=== PATIENT | female | born 1985 | race Caucasian/White ===

== ENCOUNTER 2021-09-14 13:32 | Emergency (ER) | payer OTHER, SELFPAY ==
--- NOTE | 2021-09-14 13:51 | ED_ITS ---
HPI - General Adult General Chief complaint: Psychiatric Symptoms Stated complaint: crisis Time Seen by Provider: 09/14/21 13:51 Source: patient and EMS Mode of arrival: EMS Limitations: no limitations History of Present Illness HPI narrative: Patient is a 36 year old female presenting to the emergency department today for a mental health check. Patient states that her father wanted her to be evaluated however, she does not want to be. Patient denies any homicidal or suicidal ideation. Patient states that she would like to leave and would no longer like to be evaluated. Patient denies any dizziness, lightheadedness, abdominal pain, nausea, vomiting, fever, chills, blurry vision, double vision, loss of vision, chest pain, difficulty breathing, shortness of breath, back pain, night sweats, pain with urination, increased urinary frequency, increased urinary urgency, blood in her urine or stool, syncope or a near syncopal episode, recent trauma or falls, bowel incontinence, bladder incontinence, bowel retention, bladder retention, or any other complaints at this time. Relieving factors: none Exacerbating factors: none Associated symptoms: denies other symptoms Treatments prior to arrival: none Related Data Allergies Allergy/AdvReac Type Severity Reaction Status Date / Time No Known Allergies Allergy Unverified 11/04/19 17:16 Review of Systems Constitutional: Constitutional: Reports no additional constitutional complaints, Denies chills, Denies fever(s) and Denies night sweats Eyes: Eyes: Reports no additional eye complaints, Denies blurry vision, Denies change in vision, Denies diplopia, Denies eye discharge, Denies loss of vision and Denies eye pain ENT: Denies dizziness Cardiovascular: Cardiovascular: Reports no additional cardiovascular complaints, Denies chest pain, Denies lightheadedness, Denies Loss of Consciousness and Denies dyspnea Respiratory: Respiratory: Reports no additional respiratory complaints and Denies dyspnea Gastrointestinal: Gastrointestinal: Reports no additional gastrointestinal complaints, Denies abdominal pain, Denies melena, Denies hematochezia, Denies change in bowel habits and Denies change in stool character Genitourinary: Genitourinary: Denies hematuria, Denies urinary frequency, Denies dysuria, Denies urinary incontinence, Denies urinary hesitancy and Denies urinary urgency Musculoskeletal: Musculoskeletal: Reports no additional musculoskeletal complaints, Denies numbness and Denies tingling Neurologic: Denies dizziness, Denies loss of vision, Denies numbness and Denies tingling Psychiatric: Psychiatric: Reports no additional psychiatric complaints Endocrine: Endocrine: Reports no additional endocrine complaints Hematologic/Lymphatic: Hematologic/Lymphatic: Reports no additional hematologic/lymphatic complaints Allergic/Immunologic: Allergic/Immunologic: Reports no additional allergic/immunologic complaints PMFSH Past Medical History Attestation statement: The following information was validated with the patient. Source: old records reviewed Social History Social History Advance Directives: No Advance Directives Information Provided: No Physical Exam ED Vital Signs: BMI result Body Mass Index 24.3 Const General: cooperative, no acute distress, alert and awake Nutritional Appearance: well nourished Orientation/consciousness: patient oriented x3 Limitations: no limitations HENMT Head: Yes normal to inspection and Yes atraumatic Ears: hearing grossly normal bilaterally and external ears normal General nose exam: Normal external nose present, no nasal discharge noted and no epistaxis Face and sinus: Yes normal facial exam, No abrasion and No laceration Mouth: Normal oral and palatal mucosa present, no drooling and no muffled voice Eyes General: appearance normal, both eyes and all related structures Periorbital: periorbital findings normal Eyelids: Yes eyelids normal Conjunctivae: conjunctivae normal Pupils: Equal, round and reactive pupils present EOM: EOMs intact bilaterally Neck Neck: Yes normal visual inspection, Yes full ROM and Yes no lymphadenopathy Chest Chest palpation & inspection: normal inspection of the chest Resp Effort & Inspection: normal respiratory effort and able to speak in complete sentences Auscultation: clear to auscultation bilaterally Cardio Rate: regular rate Rhythm: regular rhythm GI Inspection: Yes normal to inspection Neuro General: patient oriented x3 and moves all extremities Cranial nerves: Yes Equal, round and reactive pupils present Cognition (Neuro): normal cognition Motor exam (neuro): 5/5 motor strength present throughout Sensory Exam: Normal double simultaneous stimulation for sensation Coordination: [id number] test normal Extrem General: Yes normal to inspection, Yes full ROM and Yes capillary refill normal Psych Appearance: grossly normal Mental Status: mental status grossly normal Affect: normal affect Attitude: cooperative Thought process: Normal thought process present Thought content: Normal thought content present Insight: Good insight present (Psych) Medical Decision Making MDM Narrative Medical decision making narrative: Patient is a 36 year old female presenting to the emergency department today for a mental health evaluation. Patient's physical exam was unremarkable. Patient was alert, orientated, and able to make decisions for herself. Patient was adamant she had no thoughts or plans of harming herself or others. Patient was not on a section 12. Patient's father did not come to the Emergency Department or call the department. I explained my physical exam findings to the patient. I answered all questions asked by the patient. Patient was advised that she should still be evaluated however, she said she did not want to stay. I stressed the importance of the patient taking her medication as prescribed. I stressed the importance of the patient following up with her primary care provider and her psychiatrist. I stressed the importance of the patient returning to the emergency department immediately if her symptoms were to worsen or if she were to develop any dizziness, shortness of breath, difficulty breathing, chest pain, blurry vision, loss of vision, nausea, vomiting, abdominal pain, fever, chills, back pain, or any other complaints. Patient left against medical advice. Differential Diagnosis Differential Diagnosis: crisis Medical Records Medical records reviewed: Yes I reviewed the patient's medical records. Discharge Plan Discharge Clinical Impression: Emotional crisis Patient Disposition: Left Against Medical Advice Interventions: ED Discharge Assessment Last Done: 09/14/21 13:57 Print Language: Ecuadorean
[2021-09-14 13:53] VITALS: BP 118/94; PULSE 80; O2SAT 96; BMI 24.3
--- NOTE | 2021-09-14 13:56 | PC.NURSE ---
Before this RN could complete assessment provider discharged patient.
== END 2021-09-14 14:23 | disposition left against medical advice (07) ==
LOC: HO.ED 14:02
PROVIDERS: Emergency Provider Student in an Organized Health Care Education/Training Program; PCP Internal Medicine
DX: F43.20 Adjustment disorder, unspecified (principal)
CPT/HCPCS: 99282

== ENCOUNTER 2022-01-05 05:34 | Emergency (ER) | payer OTHER, SELFPAY ==
[2022-01-05 05:45] VITALS: BP 129/80; BP 132/114; PULSE 74; PULSE 88; RESP 22; TEMP 36.1; O2SAT 100; O2SAT 98; BMI 30.3
--- NOTE | 2022-01-05 06:05 | ECG_ITS ---
Test Reason : OVERDOSE Blood Pressure : / mmHG Vent. Rate : 069 BPM Atrial Rate : 069 BPM P-R Int : 130 ms QRS Dur : 084 ms QT Int : 420 ms P-R-T Axes : 041 058 020 degrees QTc Int : 450 ms Normal sinus rhythm Normal ECG When compared with ECG of 06-SEP-2019 15:29, No significant change was found Referred By: Generic ED Physician Electronically Signed By:DAVIDE MENDOZA MD
[2022-01-05 06:38] LABS: MANUAL DIFF FLAG NO
[2022-01-05 06:48] LABS: Basophils Percent Auto 0.1 % (0-2); Eosinophils Absolute Auto 0.1 X10*3/uL (0.0-0.4); Eosinophils Percent Auto 0.8 % (0-4); Hematocrit 40.2 % (37.0-47.0); Hemoglobin 13.3 g/dl (12.0-16.0); Imm Gran Abs Auto 0.03 X10*3/uL (0.00-0.03); Imm Gran Pct Auto 0.3 % (0.0-0.4); Lymphocytes Percent Auto 10.6 % (20-40); Mean Corpuscular HGB Conc 33.1 g/dl (31.0-35.0); Mean Corpuscular Hemoglobin 29.8 pg (27.0-33.0); Mean Corpuscular Volume 90.1 fL (80.0-98.0); Monocytes Absolute Auto 0.5 X10*3/uL (0.1-1.2); Monocytes Percent Auto 5.9 % (2-11); Neutrophils Absolute Auto 7.5 x10*3/uL (2.0-8.3); Neutrophils Percent Auto 82.3 % (45-73); Platelet Count 297 X10*3/uL (160-400); Red Blood Count 4.46 X10*6/uL (4.20-5.50); Red Cell Distribution Width 12.7 % (11.0-16.0); White Blood Count 9.1 X10*3/uL (4.8-10.8)
[2022-01-05 06:56] LABS: Alanine Aminotransferase 19 U/L (0-31); Albumin Level 4.5 g/dL (3.5-5.0); Alkaline Phosphatase 64 U/L (39-117); Anion Gap 11 (12-20); Aspartate Amino Transferase 20 U/L (5-31); Bilirubin Total 0.6 mg/dL (0.0-1.0); Blood Urea Nitrogen 19 mg/dL (9-16); Calcium 9.6 mg/dL (8.4-10.2); Carbon Dioxide 32 mmol/L (22-29); Chloride 103 mmol/L (96-108); Creatinine Clr Calc Pharmacy 97.6; Estimated Glomerular Filt Rate > 60; Glucose Random 117 mg/dL (60-115); Potassium 3.9 mmol/L (3.3-5.1); Sodium 142 mmol/L (135-145); Total Protein 7.5 g/dL (6.5-8.0)
--- NOTE | 2022-01-05 06:59 | ED_ITS ---
HPI - Overdose General Chief Complaint: Overdose Stated Complaint: ?OD NARCAN GIVEN Time Seen by Provider: 01/05/22 06:21 Source: patient and other (Significant other) Mode of arrival: EMS Limitations: no limitations History of Present Illness HPI Narrative: 36-year-old female who was brought to the emergency department by ambulance for an unintentional overdose. The patient states that she does smoke crack cocaine daily. She states that she very rarely uses opiates. She states that she did purchase a bag of fentanyl and use did intranasally. The next thing she remembers is waking up with police surrounding her and telling her that they had to give her 3 doses of intranasal Narcan to revive her. The patient's boyfriend states that they were walking to his store. The patient complained of feeling very dizzy and they sat down. The patient then passed out and her lips turned purple. He states that he was unable to revive her. He is not certain to call 911 but the police arrived and gave the patient 3 doses of intranasal Narcan 4 mg each. The patient woke up and was then transported to the emergency department. The patient states that she has a headache and has nausea but has no other compl aints. She states the headache is located diffusely throughout her head, it is a constant pounding sensation which is 8/10 at its worst. She had nausea with no vomiting. She denied chest pain, shortness of breath, abdominal pain. She states that she was in her usual state of health until the overdose. complaint: intentional overdose Onset (ago): minute(s) (30) Timing confirmed by: other (Significant other) Intent: other (Trying to get high) How Overdose Was Discovered: called 911 Context: Intentional Overdose: other (Polysubstance use disorder) Context: Accidental Overdose: wanted to get high Treatments Prior to Arrival: narcan (4 mg intranasal Narcan x3 given by police) Related Data Allergies Allergy/AdvReac Type Severity Reaction Status Date / Time No Known Allergies Allergy Unverified 11/04/19 17:16 Review of Systems Review of Systems: Yes all other systems are reviewed and are negative [facility] Past Medical History [facility] Narrative: Past medical history: None. Past surgical history: G2, P0, TAB x2, wisdom teeth extraction, LEEP procedure. Social history: The patient denies tobacco use. She rarely drinks alcohol. She states she uses crack cocaine daily. She states she very rarely uses opiates. Social History Social History Advance Directives: No Physical Exam Vital Signs: Vital Signs: Last Vital Signs Temp 98 F 01/05/22 07:22 Pulse 68 01/05/22 07:22 Resp 17 01/05/22 07:22 BP 106/74 01/05/22 07:22 Pulse Ox 98 01/05/22 07:22 O2 Del Method 01/05/22 07:22 BMI result Body Mass Index 30.3 Const: General: cooperative and no acute distress Orientation/consciousness: oriented to person and oriented to place Limitations: no limitations HEENT: Head: Yes normal to inspection, Yes normocephalic and Yes atraumatic Ears: external ears normal General nose exam: Normal external nose present Face and sinus: Yes normal facial exam Mouth: Normal oral and palatal mucosa present Throat: Yes posterior oropharynx normal Eyes: General: appearance normal, both eyes and all related structures Pupils: Equal, round and reactive pupils present Neck: Neck: Yes normal visual inspection, Yes no lymphadenopathy, Yes trachea midline and Yes supple Chest: Chest palpation & inspection: normal inspection of the chest and normal palpation of entire chest wall Resp: Effort & Inspection: normal respiratory effort and able to speak in complete sentences Auscultation: clear to auscultation bilaterally Cardio: Rate: regular rate Rhythm: regular rhythm Heart sounds: S1 normal heart sound present, S2 normal heart sound present and no murmurs GI: Inspection: Yes normal to inspection Palpation (GI): Soft to palpation, nontender and no guarding Auscultation: normal bowel sounds : General: Yes no CVA tenderness Back/Spine/Pelvis: Back: no CVA tenderness Skin: General skin exam: no rashes or lesions noted Neuro: General: oriented to person and oriented to place Cranial nerves: Yes CN's II-XII intact bilaterally and Yes Equal, round and reactive pupils present Cognition (Neuro): normal cognition Motor exam (neuro): 5/5 motor strength present throughout Extrem: General: Yes normal to inspection Psych: Appearance: grossly normal Speech and movement: Normal speech and movement present Affect: normal affect Attitude: cooperative Thought process: Normal thought process present Thought content: Normal thought content present Course Course Course Narrative: 36-year-old female with poly use disorder (opiates and cocaine) who presents emergency department for evaluation of unintentional overdose. She states she did use intranasal fentanyl and then remembers waking up surrounded by the police. Boyfriend states that they were walking when she felt dizzy and then became unresponsive in turned blue. Patient was given 3 doses of intranasal Narcan 4 mg each which did revive her. The emergency department she is complaining of a headache and nausea has no other complaints. Vital signs did reveal diastolic hypertension with a blood pressure of 132/114 and elevated respiratory rate of 22. I did order laboratory evaluation to include see BC, CMP, urine drug screen, troponin, urinalysis. Twelve EKG will be obtained. Patient will be placed on a cardiac and O2 saturation monitor. Patient will need to be observed for at least 2 hours. I did request a SUDE evaluation by our care team. 1005: The patient is awake and alert and had no episodes of arrhythmia as or apnea while being observed on the phototypesetting equipment monitor and O2 saturation monitor. The patient did have her SUDE evaluation and she is not interested in getting into detox program at this time. The patient was discharged home with intranasal Narcan. Medications Administered Discontinued Medications Generic Name Dose Route Start Last Admin Trade Name Freq PRN Reason Stop Dose Admin Ketorolac Tromethamine 15 mg 01/05/22 06:51 01/05/22 07:56 Ketorolac Tromethamine 15 Mg/Ml Vial IVPUSH 01/05/22 06:52 15 mg ONCE STA Administration Ondansetron HCl 4 mg 01/05/22 06:51 01/05/22 07:55 Ondansetron Hcl 4 Mg/2 Ml Vial IVPUSH 01/05/22 06:52 4 mg ONCE ONE Administration MDM - Overdose Lab Data Result diagrams: 01/05/22 06:33 01/05/22 06:33 Labs: Lab Results 01/05/22 01/05/22 01/05/22 Range/Units 06:33 06:33 06:33 WBC 9.1 (4.8-10.8) X10*3/uL RBC 4.46 (4.20-5.50) X10*6/uL Hgb 13.3 (12.0-16.0) g/dl Hct 40.2 (37.0-47.0) % MCV 90.1 (80.0-98.0) fL MCH 29.8 (27.0-33.0) pg MCHC 33.1 (31.0-35.0) g/dl RDW 12.7 (11.0-16.0) % Plt Count 297 (160-400) X10*3/uL MPV 9.0 L (9.4-12.3) fL Immature Gran % (Auto) 0.3 (0.0-0.4) % Neut % (Auto) 82.3 H (45-73) % Lymph % (Auto) 10.6 L (20-40) % [place] % (Auto) 5.9 (2-11) % Eos % (Auto) 0.8 (0-4) % Baso % (Auto) 0.1 (0-2) % Lymph # (Auto) 1.0 L (1.2-4.9) X10*3/uL [place] # (Auto) 0.5 (0.1-1.2) X10*3/uL Eos # (Auto) 0.1 (0.0-0.4) X10*3/uL Baso # (Auto) 0.0 (0.0-0.2) X10*3/uL Abs Immat Gran (auto) 0.03 (0.00-0.03) X10*3/uL Absolute Neuts (auto) 7.5 (2.0-8.3) x10*3/uL Absolute Nucleated RBC 0.000 (0.0-0.012) X10*3/uL Nucleated RBC % (auto) 0.0 (0.0-0.2) /100WBC Sodium 142 (135-145) mmol/L Potassium 3.9 (3.3-5.1) mmol/L Chloride 103 (96-108) mmol/L Carbon Dioxide 32 H (22-29) mmol/L Anion Gap 11 L (12-20) BUN 19 H (9-16) mg/dL Creatinine 0.80 (0.5-1.4) mg/dL Estim Creat Clear Calc 97.6 Estimated GFR > 60 Random Glucose 117 H (60-115) mg/dL Calcium 9.6 (8.4-10.2) mg/dL Total Bilirubin 0.6 (0.0-1.0) mg/dL AST 20 (5-31) U/L ALT 19 (0-31) U/L Alkaline Phosphatase 64 (39-117) U/L Troponin I High Sens < 3.5 (<3.5-17.0) ng/L Total Protein 7.5 (6.5-8.0) g/dL Albumin 4.5 (3.5-5.0) g/dL Urine Color Urine Appearance Urine pH (5.0-9.0) Ur Specific [place] (1.005-1.025) Urine Protein (Neg-Trace) mg/dL Urine Glucose (UA) (Negative) mg/dL Urine Ketones (Negative) mg/dL Urine Blood (Negative) Urine Nitrite (Negative) Ur Leukocyte Esterase (Negative) Urine RBC (0-2) /HPF Urine WBC (0-5) /HPF Ur Squamous Epith Cells (0-2) /HPF Urine Bacteria (None Seen) Hyaline Casts (0-2) /LPF Urine Opiates Screen (Not Detect) Urine Fentanyl Screen (Not Detect) Ur Barbiturates Screen (Not Detect) Ur Phencyclidine Scrn (Not Detect) Ur Amphetamines Screen (Not Detect) U Benzodiazepines Scrn (Not Detect) Urine Cocaine Screen (Not Detect) U Marijuana (THC) Screen (Not Detect) 01/05/22 01/05/22 Range/Units 09:26 09:26 WBC (4.8-10.8) X10*3/uL RBC (4.20-5.50) X10*6/uL Hgb (12.0-16.0) g/dl Hct (37.0-47.0) % MCV (80.0-98.0) fL MCH (27.0-33.0) pg MCHC (31.0-35.0) g/dl RDW (11.0-16.0) % Plt Count (160-400) X10*3/uL MPV (9.4-12.3) fL Immature Gran % (Auto) (0.0-0.4) % Neut % (Auto) (45-73) % Lymph % (Auto) (20-40) % [place] % (Auto) (2-11) % Eos % (Auto) (0-4) % Baso % (Auto) (0-2) % Lymph # (Auto) (1.2-4.9) X10*3/uL [place] # (Auto) (0.1-1.2) X10*3/uL Eos # (Auto) (0.0-0.4) X10*3/uL Baso # (Auto) (0.0-0.2) X10*3/uL Abs Immat Gran (auto) (0.00-0.03) X10*3/uL Absolute Neuts (auto) (2.0-8.3) x10*3/uL Absolute Nucleated RBC (0.0-0.012) X10*3/uL Nucleated RBC % (auto) (0.0-0.2) /100WBC Sodium (135-145) mmol/L Potassium (3.3-5.1) mmol/L Chloride (96-108) mmol/L Carbon Dioxide (22-29) mmol/L Anion Gap (12-20) BUN (9-16) mg/dL Creatinine (0.5-1.4) mg/dL Estim Creat Clear Calc Estimated GFR Random Glucose (60-115) mg/dL Calcium (8.4-10.2) mg/dL Total Bilirubin (0.0-1.0) mg/dL AST (5-31) U/L ALT (0-31) U/L Alkaline Phosphatase (39-117) U/L Troponin I High Sens (<3.5-17.0) ng/L Total Protein (6.5-8.0) g/dL Albumin (3.5-5.0) g/dL Urine Color Dark Yellow Urine Appearance Cloudy Urine pH 5.5 (5.0-9.0) Ur Specific [place] 1.025 (1.005-1.025) Urine Protein 30 (1+) H (Neg-Trace) mg/dL Urine Glucose (UA) Negative (Negative) mg/dL Urine Ketones Trace (Negative) mg/dL Urine Blood Small (1+) H (Negative) Urine Nitrite Negative (Negative) Ur Leukocyte Esterase Negative (Negative) Urine RBC 3-5 H (0-2) /HPF Urine WBC 0-5 (0-5) /HPF Ur Squamous Epith Cells 11-20 (0-2) /HPF Urine Bacteria 2+ (None Seen) Hyaline Casts 3-5 (0-2) /LPF Urine Opiates Screen Not Detected (Not Detect) Urine Fentanyl Screen POSITIVE H (Not Detect) Ur Barbiturates Screen Not Detected (Not Detect) Ur Phencyclidine Scrn Not Detected (Not Detect) Ur Amphetamines Screen Not Detected (Not Detect) U Benzodiazepines Scrn Not Detected (Not Detect) Urine Cocaine Screen POSITIVE H (Not Detect) U Marijuana (THC) Screen Not Detected (Not Detect) Discharge Plan Discharge Clinical Impression: Cocaine use, Opiate use Drug overdose Qualifiers: Encounter type: initial encounter Injury intent: accidental or unintentional Qualified Code(s): T50.901A - Poisoning by unspecified drugs, medicaments and biological substances, accidental (unintentional), initial encounter Patient Disposition: Home, Self-Care Additional Instructions: You should consider getting into a detox program to help with your cocaine in opiate use disorder. Your are being discharged home with intranasal Narcan. If you are going to continue to use heroin, you should make sure that there is a sober person with you that is not using drugs and that this person can administer intranasal Narcan in the event that you stop breathing. Follow-up with your doctor in 2 days. Please return to the emergency department if your symptoms get worse or if you develop any symptoms that are concerning to you.
[2022-01-05 07:14] LABS: Troponin-I High Sensitivity < 3.5 ng/L (<3.5-17.0)
[2022-01-05 07:22] VITALS: BP 106/74; PULSE 68; RESP 17; TEMP 36.6; O2SAT 98
[2022-01-05] MEDS: ondansetron HCL 4 MG/2 ML VIAL IVPUSH (07:55)
[2022-01-05] MEDS: Ketorolac Tromethamine 15 MG/ML VIAL IVPUSH (07:56)
--- NOTE | 2022-01-05 09:02 | PC.NURSE ---
PT A&Ox4, sleeping in room, awakens easily. Meds given as documented. PT ambulated independent to BR. Will continue to observe.
--- NOTE | 2022-01-05 09:35 | PC.NURSE ---
Cristy from care team at bedside.
[2022-01-05 09:43] LABS: Appearance Urine Cloudy; Color Urine Dark Yellow; Glucose Urine UA Negative (Negative); Leukocyte Esterase Urine Negative (Negative); Nitrite Urine Negative (Negative); PH 5.5 (5.0-9.0); Specific Gravity - Urine 1.025 (1.005-1.025); UMIC TRIGGER UACC YES; Urine Blood Small (1+) (Negative); Urine Ketones Trace mg/dL (Negative); Urine Protein 30 (1+) mg/dL (Neg-Trace)
[2022-01-05 09:45] LABS: Bacteria Urine 2+ (None Seen); WBC Urine 0-5 /HPF (0-5)
[2022-01-05 09:49] LABS: Amphetamine Screen Urine Not Detected (Not Detect); Barbiturates, Urine Not Detected (Not Detect); Benzodiazepines Screen Urine Not Detected (Not Detect); Cannabinoid Screen Urine Not Detected (Not Detect); Cocaine Screen Urine POSITIVE (Not Detect); Fentanyl, urine POSITIVE (Not Detect); Opiate Screen Urine Not Detected (Not Detect); Phencyclidine Screen Urine Not Detected (Not Detect)
--- NOTE | 2022-01-05 10:05 | HO.SUDE ---
Patient is a 36 year-old woman who came to the ED following an accidental overdose on Fentanyl. She was seen by the CARE Team for ZACH assessment in bed 13 in the main ED. She was alert, oriented, pleasant and easily engaged. No tox screen She primarily uses cocaine which she has used since age 19 on and off, began to use crack at age 33 Occasionally uses opiates and today was the first time she had straight Fentanyl Was addicted to Percocets from age [age] and was on suboxone for 11 years, stopped last year Went to detox at [facility] 09/25-10/15, left the program to be with her boyfriend History of depression, anxiety, PTSD and was engaged in OP therapy for many years, stopped last year. Patient has minimal supports due to her drug use, is homeless, unemployed, has no providers, has no phone. She is interested in detox but said she has to discuss this with her boyfriend and has all the information she needs to get into a program. Encouraged patient to return to the ED or [facility] when she is ready. In addition, she is aware the local police can help get people into detoxes.
[2022-01-05] MEDS: Naloxone HCl Nasal TAKE HOME 4 MG SPRAY NOSTRILALT (10:18)
== END 2022-01-05 10:19 | disposition home or self-care (01) ==
PROVIDERS: Emergency Provider Emergency Medicine Emergency Medical Services; PCP Internal Medicine
DX: T40.411A Poisoning by fentanyl or fentanyl analogs, accidental (unintentional), initial encounter (principal); R40.4 Transient alteration of awareness; Y92.480 Sidewalk as the place of occurrence of the external cause; R51.9 Headache, unspecified; R11.0 Nausea; F14.10 Cocaine abuse, uncomplicated; F11.10 Opioid abuse, uncomplicated; F32.A Depression, unspecified; F41.9 Anxiety disorder, unspecified; F43.10 Post-traumatic stress disorder, unspecified
CPT/HCPCS: 36415; 80053; 80307; 81001; 84484; 85025; 93005; 96374; 96375; 99285; J1885; J2405

== ENCOUNTER 2022-01-26 16:11 | Emergency (ER) | payer OTHER, SELFPAY ==
[2022-01-26 16:22] VITALS: BP 116/68; PULSE 80; RESP 16; TEMP 36.6; O2SAT 100; BMI 29.2
--- NOTE | 2022-01-26 16:22 | ED_ITS ---
HPI - General Adult General Chief complaint: General Medical Stated complaint: ?sinus infection Source: patient Mode of arrival: ambulatory Limitations: no limitations History of Present Illness HPI narrative: This is a 36 year old female presents w/ headache (frontal pressure, without vision changes, disease, trauma) , facial pressure, congestion, had a URI about a week ago tells me she feels like this is her typical yearly sinus infection. Denies CP, SOB, fevers, chills, nausea, vomiting, abdominal pain. Not on blood thinners Related Data Previous Rx's Medication Instructions Recorded amoxicillin 875 mg-potassium 1 tab PO BID 10 days #20 tabs 01/26/22 clavulanate 125 mg tablet ibuprofen 800 mg tablet 800 mg PO Q8H PRN pain #20 tabs 01/26/22 prednisone 20 mg tablet 40 mg PO DAILY 5 days #10 tabs 01/26/22 Allergies Allergy/AdvReac Type Severity Reaction Status Date / Time No Known Allergies Allergy Unverified 11/04/19 17:16 Review of Systems Review of Systems: Constitutional : No Weight loss, No Fever, No Chills, + Fatigue, + Malaise ENT/Mouth : No sore throat, No Rhinorrhea, + facial pressure Eyes: No Eye Pain, No Swelling, No Redness Cardiovascular : No Chest Pain, No SOB, No Dyspnea on Exertion, No Orthopnea, No Edema, No Palpitations Respiratory : No Cough, No Sputum, No Wheezing Gastrointestinal : No Nausea, No Vomiting, No Diarrhea, No Constipation, No abdominal Pain, No Hematochezia, No Melena Genitourinary : No Dysuria, No Urinary Frequency, No Hematuria, Musculoskeletal : No joint pain, No Myalgias, No Joint Swelling Skin : No Skin Lesions, No rash Neuro : No Weakness, No Numbness, No Dizziness, + Headache Psych : No Anxiety/Panic, No Depression All other systems reviewed and are negative Yes all other systems are reviewed and are negative [facility] Past Medical History Attestation statement: The following information was validated with the patient. Source: old records reviewed and nursing notes reviewed Physical Exam ED Vital Signs: Vital Signs - 24 hr 01/26/22 16:22 Temperature 98 F Pulse Rate 80 Respiratory Rate 16 Blood Pressure 116/68 Pulse Oximetry 100 Oxygen Delivery Method Room Air BMI result Body Mass Index 29.2 Vital signs stable Appearance: Alert.? Oriented X3.? No acute distress.? Head: Normocephalic, atraumatic, no step-offs or deformities. Tenderness to palpation of facial sinus Eyes: Pupils equal, round and reactive to light.? ENT: Pharynx normal.? Neck: Normal inspection.? Neck supple.? CVS: Normal heart rate and rhythm.? Pulses normal.? Respiratory: No respiratory distress.? Breath sounds normal.? Abdomen: Soft and nontender.? Skin: Skin warm and dry.? Normal skin color.? Normal skin turgor.? Extremities: No lower extremity edema.? No calf ttp. 5/5 strength to bilateral upper and lower extremities Neuro: Oriented X 3.? No motor deficit.? No sensory deficit. CN 2-12 intact NIH stroke scale 0. GCS 15 Course Reevaluation(s) Reevaluation #1: I discussed treatment plan with patient. She verbalizes understanding. Patient will be discharged home. Advised to return with new or worsening symptoms. Comfortable discharge home with prompt PCP follow-up. Time: 16:35 Medical Decision Making Medical Decision Making [facility] Narrative: 1634 36-year-old female asthma with history and physical consistent with sinusitis time 10 days. History of sinus infection feels like her typical. Physical exam with discomfort with facial sinuses. Headache likely secondary to sinus pressure. Unlikely intracranial hemorrhage, stroke, posterior stroke. No signs of meningitis. Negative meningeal signs on exam. NIH stroke scale 0 Plan at this time to discharge patient home on antibiotics for sinusitis and prednisone Critical Care Time Critical Care Time Critical Care Time: No Discharge Plan Discharge Clinical Impression: Acute sinusitis Patient Disposition: Home, Self-Care Instructions: Sinusitis (ED) Additional Instructions: Take your medications as prescribed. If you were prescribed antibiotics today, it is important that you take your medication to their entirety, do not skip any doses, do not finish them early. Follow-up with your primary care provider this week. Return to the emergency department with new or worsening symptoms. Such as fevers, chills, chest pain, shortness of breath, nausea, vomiting, dizziness, headache, vision changes, lethargy In case of emergency call 911 Prescriptions: New amoxicillin-pot clavulanate 875-125 mg tablet 1 tab PO BID 10 Days Qty: 20 0RF prednisone 20 mg tablet 40 mg PO DAILY 5 Days Qty: 10 0RF ibuprofen 800 mg tablet 800 mg PO Q8H PRN (Reason: pain) Qty: 20 0RF Referrals: Physician,Unknown J [Primary Care Provider] - 2 days
== END 2022-01-26 16:49 | disposition home or self-care (01) ==
PROVIDERS: Emergency Provider Emergency Medicine Emergency Medical Services; PCP Internal Medicine
DX: J01.10 Acute frontal sinusitis, unspecified (principal)
CPT/HCPCS: 99282; 99283